=== PATIENT | female | born 1970 | race Caucasian/White ===

== ENCOUNTER 2024-03-27 14:27 | Emergency (ER) | payer OTHER ==
[2024-03-27 14:45] VITALS: BP 119/69; PULSE 55; RESP 18; TEMP 97.2; BMI 23.5
[2024-03-27 15:09] LABS: HEMATOCRIT 39.2 % (32.4-45.2); HEMOGLOBIN 12.9 G/dL (10.7-15.3); MCH 28.8 pg (25.7-33.7); MCHC 32.8 g/dl (32.0-36.0); MEAN CELL VOLUME 87.9 fl (80-96); MEAN PLT VOLUME 8.3 fl (7.5-11.1); PLATELET COUNT 198.4 10^3/uL (134-434); RBC 4.46 10^6/uL (3.60-5.2); WHITE BLOOD COUNT 10.2 10^3/uL (4.0-10.8)
[2024-03-27 15:29] LABS: ALBUMIN 4.1 g/dl (3.4-5.0); ALK PHOS 42 U/L (45-117); ANION GAP 7 mmol/L (4-13); BILIRUBIN,TOTAL 0.4 mg/dl (0.2-1); CALCIUM 9.2 mg/dl (8.5-10.1); CHLORIDE 103 mmol/L (98-107); CO2 25 mmol/L (21-32); CREATININE 0.8 mg/dl (0.6-1.3); GLUCOSE,RANDOM 104 mg/dl (74-106); POTASSIUM 4.1 mmol/L (3.5-5.1); SGPT/ALT 15 U/L (7-52); SODIUM 135 mmol/L (136-145); TOT PROT 7.1 g/dl (6.4-8.2)
[2024-03-27] MEDS: ACETAMINOPHEN 325 MG TABLET (FP) PO ONE (15:33)
[2024-03-27 15:54] LABS: EPITHELIAL CELLS 0-5 /hpf
[2024-03-27 16:11] LABS: PLATELET ESTIMATE ADEQUATE
[2024-03-27 16:37] LABS: SGOT/AST 19 U/L (15-37)
== END 2024-03-27 16:42 | disposition home or self-care (01) ==
LOC: FER 14:27
DX: S22.32XA Fracture of one rib, left side, initial encounter for closed fracture (principal); W10.8XXA Fall (on) (from) other stairs and steps, initial encounter
CPT/HCPCS: 36415; 71260-TC; 74177-TC; 80053; 81003; 81015; 85027; 99285-25; Q9967